=== PATIENT | male | born 1950 | race Caucasian/White ===

== ENCOUNTER 2022-08-19 15:13 | Inpatient (IN) ==
[2022-08-19 16:56] LABS: Basophils % 0.2 %; Eosinophils # 0.1 K/mcL (0.0-0.6); Eosinophils % 1.1 %; Hematocrit 35.1 % (37.5-50.1); Hemoglobin 11.4 g/dL (12.9-16.9); Immature Granulocytes % 1.2 % (0-4); Lymphocytes % 11.6 %; Mean Corpuscular HGB Conc 32.5 g/dL (31.6-35.5); Mean Corpuscular Hemoglobin 27.8 pg (28.0-33.3); Mean Corpuscular Volume 85.6 fL (83.0-100.0); Mean Platelet Volume 9.1 fL (9.4-12.4); Monocytes # 0.6 K/mcL (0.0-1.3); Monocytes % 7.3 %; Neutrophils # 6.6 K/mcL (1.6-8.9); Platelet Count 182 K/mcL (140-400); Red Cell Distribution Width 15.7 % (11.5-14.5); Segmented Neutrophils % 78.6 %; White Blood Count 8.4 K/mcL (4.3-11.1)
[2022-08-19] MEDS ORDERED: Iopamidol - 370 500 ML MLS IVP ONE (16:59)
[2022-08-19 17:17] LABS: BUN/Creatinine Ratio 26 (6-26); Blood Urea Nitrogen 59 mg/dL (8-23); Calcium 9.3 mg/dL (8.6-10.3); Carbon Dioxide 24 mEq/L (23-29); Chloride 105 mEq/L (98-107); Ethanol < 10 mg/dL (Less than 10); Glucose 131 mg/dL (70-105); Osmolality,Calculated 310 (280-300); Potassium 4.4 mEq/L (3.5-5.1); Sodium 141 mEq/L (136-145); Troponin I 0.03 ng/mL (< 0.04)
[2022-08-19] MEDS ORDERED: 0.9 % Sodium Chloride 1,000 ML IV ONE (17:37)
[2022-08-19] MEDS ORDERED: *HR* FentaNYL (PF) 100 MCG/2 ML VIAL IVP ONE (18:06)
[2022-08-19] MEDS ORDERED: *HR* Metoprolol 5 MG/5 ML VIAL IVP ONE (18:06)
[2022-08-19 18:21] LABS: VBG HCO3 24 mEq/L (21-27); VBG PCO2 51 mmHg (41-51); VBG PH 7.29 pH Units (7.32-7.42); VBG PO2 81 mmHg (25-50)
[2022-08-19 18:38] LABS: Magnesium 1.9 mg/dL (1.6-2.6)
[2022-08-19 18:51] LABS: Influenza A PCR Negative (Negative); Influenza B PCR Negative (Negative); Resp. Syncytial Virus PCR Negative (Negative)
[2022-08-19 18:52] LABS: Thyroid Stimulating Hormone 1.847 mcIU/mL (0.340-5.600)
[2022-08-19 19:25] LABS: SARS-CoV-2 by PCR (In House) Negative (Negative)
[2022-08-19] MEDS ORDERED: Haloperidol Lactate 5 MG/ML VIAL IVP ONE (20:22)
[2022-08-19] MEDS: *HR* LORazepam 2 MG/ML VIAL IVP ONE ×2 (20:34→20:35)
[2022-08-19 20:39] LABS: Amphetamine Screen,Urine Negative ng/mL (Cutoff=1000); Barbiturate Screen,Urine Negative ng/mL (Cutoff=200); Benzodiazepines Screen,Urine Negative ng/mL (Cutoff=200); Cannabinoid Screen,Urine Negative ng/mL (Cutoff = 50); Cocaine Screen,Urine Negative ng/mL (Cutoff= 300); Opiate Screen,Urine Negative ng/mL (Cutoff=300); Phencyclidine Screen,Urine Negative ng/mL (Cutoff=25)
[2022-08-19 21:35] LABS: Bilirubin,Urine Small (Negative); Blood,Urine Large (Negative); Clarity,Urine Turbid (Clear); Color,Urine Yellow (Yellow); Glucose,Urine (UA) 30 mg/dL (Normal); Hyaline Casts,Urine Many per lpf (None Seen); Ketones,Urine Trace mg/dL (Negative); Leukocyte Esterase,Urine Negative (Negative); Mucus,Urine Few per lpf (None-Few); Nitrite,Urine Negative (Negative); PH,Urine 6.5 pH Units (5.0-8.0); Protein,Urine >=600 mg/dL (Neg-Trace); Specific Gravity,Urine > 1.030 (1.010-1.025); Squamous Epithelial Cell,Urine Few per hpf (None-Few); Urobilinogen,Urine Normal (Normal)
[2022-08-19] MEDS ORDERED: Ziprasidone 10 MG, Closed System Device IM Kit 1 EACH in Water for inj. (sterile) 0.5 ML IM ONE (22:01)
[2022-08-19] MEDS ORDERED: Water for inj. (sterile) 10 ML ONE (22:03)
[2022-08-19] MEDS ORDERED: Ziprasidone 20 MG/VIAL VIAL IM ONE (22:03)
[2022-08-19] MEDS ORDERED: Naloxone 0.4 MG/ML INJ IVP PRN (23:14)
[2022-08-19] MEDS ORDERED: Ondansetron 4 MG/2 ML VIAL IVP PRN (23:14)
[2022-08-19 23:35] LABS: Adenovirus Not Detected (Not Detect); Bordetella Pertussis Not Detected (Not Detect); Chlamydophila pneumoniae Not Detected (Not Detect); Coronavirus 229E Not Detected (Not Detect); Coronavirus HKU1 Not Detected (Not Detect); Coronavirus NL63 Not Detected (Not Detect); Coronavirus OC43 Not Detected (Not Detect); Human Metapneumovirus Not Detected (Not Detect); Human Rhinovirus/Enterovirus Not Detected (Not Detect); Influenza A Subtype 2009 H1 Not Detected (Not Detect); Influenza B Not Detected (Not Detect); Mycoplasma pneumoniae Not Detected (Not Detect); Parainfluenza Virus 1 Not Detected (Not Detect); Parainfluenza Virus 2 Not Detected (Not Detect); Parainfluenza Virus 3 Not Detected (Not Detect); Parainfluenza Virus 4 Not Detected (Not Detect); Respiratory Syncytial Virus Not Detected (Not Detect); SARS-CoV-2 Not Detected (Not Detect)
[2022-08-19 23:45] LABS: ABG Base Excess -5 mEq/L (-2 to 3); ABG HCO3 21 mEq/L (21-27); ABG Oxygen Saturation 92 % (95-98); ABG PCO2 40 mmHg (35-45); ABG PH 7.33 pH Units (7.32-7.45); ABG PO2 68 mmHg (85-104); ABG TCO2 22 mEq/L (20-26)
[2022-08-20 01:11] LABS: Alanine Aminotransferase 7 Units/L (7-52); Albumin 3.9 g/dL (3.5-5.7); Albumin/Globulin Ratio 1.4 (1.1-2.2); Alkaline Phosphatase 70 Units/L (34-104); Aspartate Amino Transferase 13 Units/L (13-39); Bilirubin,Direct 0.2 mg/dL (0.0-0.2); Bilirubin,Indirect 0.7 mg/dL (0.0-1.0); Bilirubin,Total 0.9 mg/dL (0.3-1.0); Globulin 2.8 g/dL (2.4-3.5); Total Protein 6.7 g/dL (6.4-8.9)
[2022-08-20] MEDS ORDERED: *HR* Dextrose 50 % in Water (Syg) 50 ML SYRINGE IVP PRN (02:14)
[2022-08-20] MEDS ORDERED: Dextrose Gel 15 GM/37.5 ML TUBE PO PRN ×2 (02:14)
[2022-08-20] MEDS ORDERED: D5% in Water 1,000 ML IVC PRN (02:14)
[2022-08-20 02:55] LABS: Hematocrit 37.3 % (37.5-50.1); Hemoglobin 11.5 g/dL (12.9-16.9); Mean Corpuscular HGB Conc 30.8 g/dL (31.6-35.5); Mean Corpuscular Hemoglobin 26.7 pg (28.0-33.3); Mean Corpuscular Volume 86.7 fL (83.0-100.0); Mean Platelet Volume 9.8 fL (9.4-12.4); Platelet Count 186 K/mcL (140-400); Red Cell Distribution Width 15.9 % (11.5-14.5); White Blood Count 10.3 K/mcL (4.3-11.1)
[2022-08-20 03:11] LABS: Calcium 8.8 mg/dL (8.6-10.3)
[2022-08-20] MEDS ORDERED: *HR* LORazepam 2 MG/ML VIAL ONE ×2 (04:04→09:52)
[2022-08-20] MEDS ORDERED: *HR* LORazepam 2 MG/ML VIAL IVP ONE ×4 (04:10→10:15)
[2022-08-20] MEDS ORDERED: Morphine Sulfate 2 MG/ML SYRINGE IVP ONE (04:23)
[2022-08-20] MEDS ORDERED: Furosemide 40 MG/4 ML VIAL ONE (04:29)
[2022-08-20] MEDS ORDERED: Furosemide 40 MG/4 ML VIAL IVP ONE ×3 (04:35→14:29)
[2022-08-20] MEDS: *HR* Heparin 5,000 UNIT/ML VIAL SQ SCH ×3 (05:51→20:55)
[2022-08-20] MEDS: Insulin LISPRO 300 UNITS/3 ML VIAL SUBQ SCH ×4 (05:56→22:49)
[2022-08-20 06:57] LABS: ABG Base Excess -7 mEq/L (-2 to 3); ABG HCO3 18 mEq/L (21-27); ABG Oxygen Saturation 96 % (95-98); ABG PCO2 33 mmHg (35-45); ABG PH 7.34 pH Units (7.32-7.45); ABG PO2 89 mmHg (85-104); ABG TCO2 19 mEq/L (20-26); Blood Gas Pressure Support 8 cm H2O
[2022-08-20 09:44] LABS: Uric Acid 11.5 mg/dL (2.3-7.6)
[2022-08-20] MEDS: cefTRIAXone 1,000 MG in 0.9 % Sodium Chloride Mini Bag 100 ML IVPB SCH (10:25)
[2022-08-20] MEDS: Azithromycin 500 MG in 0.9 % Sodium Chloride 250 ML IVPB SCH (10:26)
[2022-08-20] MEDS: *HR* LORazepam 2 MG/ML VIAL IVP PRN (10:42)
[2022-08-20] MEDS ORDERED: Dexmedetomidine HCl 400 MCG/100 ML MLS IVC ONE (11:06)
[2022-08-20] MEDS: Dexmedetomidine HCl 400 MCG/100 ML MLS IVC SCH ×3 (11:14→23:56)
[2022-08-20 11:28] LABS: Hepatitis B Surface Antigen Nonreactive (Nonreactive)
[2022-08-20 11:56] LABS: Hepatitis C Virus Antibody Nonreactive (Nonreactive)
[2022-08-20 11:57] LABS: Hepatitis B Core IgM Nonreactive (Nonreactive)
[2022-08-20 11:58] LABS: Hepatitis A Antibody IgM Nonreactive (Nonreactive)
[2022-08-20] MEDS: Albumin 25% 25gram/100mL 25 GM/100 ML IV.SOLN IVPB SCH ×2 (14:19→20:53)
[2022-08-20] MEDS ORDERED: Furosemide 240 MG in 0.9 % Sodium Chloride 96 ML IVC SCH (14:30)
[2022-08-20] MEDS ORDERED: Ipratropium/Albuterol Neb 3 ML IH PRN (22:07)
[2022-08-20 22:19] LABS: ABG Base Excess -2 mEq/L (-2 to 3); ABG HCO3 23 mEq/L (21-27); ABG Oxygen Saturation 93 % (95-98); ABG PCO2 38 mmHg (35-45); ABG PH 7.38 pH Units (7.32-7.45); ABG PO2 68 mmHg (85-104); ABG TCO2 24 mEq/L (20-26)
[2022-08-20] MEDS ORDERED: Haloperidol Lactate 5 MG/ML VIAL IVP ONE (22:21)
[2022-08-21] MEDS: *HR* LORazepam 2 MG/ML VIAL IVP PRN ×2 (01:00→06:55)
[2022-08-21 01:42] LABS: Basophils % 0.1 %; Hematocrit 35.4 % (37.5-50.1); Hemoglobin 11.3 g/dL (12.9-16.9); Immature Granulocytes % 0.3 % (0-4); Lymphocytes # 1.1 K/mcL (0.6-4.6); Lymphocytes % 7.5 %; Mean Corpuscular HGB Conc 31.9 g/dL (31.6-35.5); Mean Corpuscular Hemoglobin 26.9 pg (28.0-33.3); Mean Corpuscular Volume 84.3 fL (83.0-100.0); Mean Platelet Volume 10.3 fL (9.4-12.4); Monocytes # 1.1 K/mcL (0.0-1.3); Monocytes % 7.3 %; Neutrophils # 12.5 K/mcL (1.6-8.9); Platelet Count 155 K/mcL (140-400); Red Cell Distribution Width 16.6 % (11.5-14.5); Segmented Neutrophils % 84.8 %; White Blood Count 14.7 K/mcL (4.3-11.1)
[2022-08-21 02:02] LABS: Albumin 3.3 g/dL (3.5-5.7); Albumin/Globulin Ratio 1.1 (1.1-2.2); Bilirubin,Total 0.5 mg/dL (0.3-1.0); Calcium 8.7 mg/dL (8.6-10.3); Globulin 2.9 g/dL (2.4-3.5); Magnesium 1.9 mg/dL (1.6-2.6); Phosphorous 4.5 mg/dL (2.7-4.5); Potassium 4.8 mEq/L (3.5-5.1); Total Protein 6.2 g/dL (6.4-8.9)
[2022-08-21] MEDS: Dexmedetomidine HCl 400 MCG/100 ML MLS IVC SCH ×4 (05:02→20:44)
[2022-08-21] MEDS: Albumin 25% 25gram/100mL 25 GM/100 ML IV.SOLN IVPB SCH ×3 (05:03→20:42)
[2022-08-21] MEDS: *HR* Heparin 5,000 UNIT/ML VIAL SQ SCH ×3 (05:03→20:46)
[2022-08-21] MEDS: Insulin LISPRO 300 UNITS/3 ML VIAL SUBQ SCH ×4 (05:05→23:11)
[2022-08-21 05:29] LABS: Creatinine,Urine 278 mg/dL; Microalbumin,Urine > 1350 mg/L; Protein/Creatinine Ratio,Urine 1.81 mg/mg (0.00-0.20)
[2022-08-21] MEDS: Azithromycin 500 MG in 0.9 % Sodium Chloride 250 ML IVPB SCH (06:39)
[2022-08-21] MEDS ORDERED: *HR* LORazepam 2 MG/ML VIAL IVP ONE ×2 (07:29→13:39)
[2022-08-21 08:17] LABS: VBG HCO3 19 mEq/L (21-27); VBG PCO2 52 mmHg (41-51); VBG PH 7.17 pH Units (7.32-7.42); VBG PO2 32 mmHg (25-50)
[2022-08-21] MEDS ORDERED: 0.9 % Sodium Chloride 500 ML ONE (08:37)
[2022-08-21] MEDS: Midazolam HCl 50 MG/50 ML IV.SOLN IVC SCH ×3 (08:59→16:38)
[2022-08-21 09:03] LABS: ABG Base Excess -1 mEq/L (-2 to 3); ABG HCO3 24 mEq/L (21-27); ABG Oxygen Saturation 65 % (95-98); ABG PCO2 38 mmHg (35-45); ABG PO2 33 mmHg (85-104); ABG TCO2 25 mEq/L (20-26); Blood Gas Modality ASSIST CONTROL; Blood Gas VT 480 cc
[2022-08-21] MEDS: cefTRIAXone 1,000 MG in 0.9 % Sodium Chloride Mini Bag 100 ML IVPB SCH (09:12)
[2022-08-21] MEDS: Carbidopa/Levodopa 25/100 TABLET PO SCH ×2 (09:12→20:46)
[2022-08-21] MEDS: Norepinephrine 4 MG/254 ML IV.SOLN IVC SCH ×2 (10:57→11:42)
[2022-08-21] MEDS ORDERED: *HR* Heparin 5,000 UNIT/ML VIAL IVP PRN (11:52)
[2022-08-21] MEDS ORDERED: 0.9 % Sodium Chloride 1,000 ML PRIME ONE ×2 (11:52)
[2022-08-21] MEDS ORDERED: *HR* Alteplase (Cathflo) 2 MG VIAL IVP PRN (11:52)
[2022-08-21] MEDS ORDERED: *HR* FentaNYL (PF) 100 MCG/2 ML VIAL ONE (11:54)
[2022-08-21] MEDS ORDERED: *HR* FentaNYL (PF) 100 MCG/2 ML VIAL IVP ONE (11:58)
[2022-08-21] MEDS ORDERED: FentaNYL (PF) 1,000 MCG/100 ML IV.SOLN IVC SCH (12:00)
[2022-08-21] MEDS: FentaNYL (PF) 1,000 MCG/100 ML IV.SOLN IVC SCH ×2 (12:14→16:33)
[2022-08-21 12:15] LABS: INR 1.3; Prothrombin Time 14.4 Seconds (9.4-12.1)
[2022-08-21] MEDS: PrismaSATE BGK 4/2.5 5,000 ML CRRT SCH ×4 (12:44→23:13)
[2022-08-21 13:02] LABS: ABG Base Excess 0 mEq/L (-2 to 3); ABG HCO3 25 mEq/L (21-27); ABG Oxygen Saturation 81 % (95-98); ABG PCO2 40 mmHg (35-45); ABG PH 7.41 pH Units (7.32-7.45); ABG PO2 45 mmHg (85-104); ABG TCO2 26 mEq/L (20-26); Blood Gas Modality ASSIST CONTROL; Blood Gas VT 480 cc
[2022-08-21] MEDS ORDERED: *HR* Midazolam HCl 2 MG/2 ML VIAL IVP ONE (13:34)
[2022-08-21] MEDS ORDERED: *HR* Etomidate 20 MG/10 ML AMPUL IVP ONE (13:34)
[2022-08-21] MEDS ORDERED: *HR* Propofol 200 MG/20 ML VIAL IVP ONE ×2 (13:34→13:39)
[2022-08-21] MEDS ORDERED: *HR* Midazolam HCl 5 MG/5 ML VIAL IVP ONE ×2 (13:34→13:39)
[2022-08-21] MEDS: Cisatracurium 200 MG in 0.9 % Sodium Chloride 80 ML IVC SCH ×3 (13:47→17:00)
[2022-08-21] MEDS ORDERED: Calcium Gluconate 1gm/50mL 1 GM/50 ML BAG IVPB PRN ×2 (14:17)
[2022-08-21 15:23] LABS: VBG Ionized Calcium 1.06 mmol/L (1.15-1.35)
[2022-08-21] MEDS: Piperacillin/Tazobactam 3.375 GM in 0.9 % Sodium Chloride Mini Bag 100 ML IVPB SCH ×2 (15:36→23:05)
[2022-08-21] MEDS: Calcium Chloride 4,000 MG in 0.9 % Sodium Chloride 1,000 ML CRRT SCH (16:18)
[2022-08-21] MEDS ORDERED: Cisatracurium 200 MG in 0.9 % Sodium Chloride 80 ML IVC SCH (17:00)
[2022-08-21 17:59] LABS: ABG Base Excess 0 mEq/L (-2 to 3); ABG HCO3 25 mEq/L (21-27); ABG Oxygen Saturation 86 % (95-98); ABG PCO2 45 mmHg (35-45); ABG PH 7.36 pH Units (7.32-7.45); ABG PO2 54 mmHg (85-104); ABG TCO2 27 mEq/L (20-26); Blood Gas Modality ASSIST CONTROL; Blood Gas VT 480 cc
[2022-08-21 19:08] LABS: VBG Ionized Calcium 1.09 mmol/L (1.15-1.35)
[2022-08-21 19:57] LABS: ABG Base Excess 0 mEq/L (-2 to 3); ABG HCO3 26 mEq/L (21-27); ABG Oxygen Saturation 100 % (95-98); ABG PCO2 45 mmHg (35-45); ABG PH 7.36 pH Units (7.32-7.45); ABG PO2 318 mmHg (85-104); ABG TCO2 27 mEq/L (20-26); Blood Gas Modality ASSIST CONTROL; Blood Gas VT 480 cc
[2022-08-21 21:16] LABS: ABG Ionized Calcium 1.09 mmol/L (1.15-1.35)
[2022-08-21 23:10] LABS: ABG Ionized Calcium 1.13 mmol/L (1.15-1.35)
[2022-08-22 01:07] LABS: ABG Ionized Calcium 1.14 mmol/L (1.15-1.35)
[2022-08-22] MEDS: Midazolam HCl 50 MG/50 ML IV.SOLN IVC SCH ×3 (01:25→18:19)
[2022-08-22 03:15] LABS: Basophils % 0.1 %; Hematocrit 25.9 % (37.5-50.1); Immature Granulocytes % 0.7 % (0-4); Lymphocytes # 0.8 K/mcL (0.6-4.6); Lymphocytes % 9.1 %; Mean Corpuscular HGB Conc 32.4 g/dL (31.6-35.5); Mean Corpuscular Hemoglobin 27.3 pg (28.0-33.3); Mean Corpuscular Volume 84.1 fL (83.0-100.0); Monocytes # 0.8 K/mcL (0.0-1.3); Monocytes % 9.2 %; Neutrophils # 6.9 K/mcL (1.6-8.9); Platelet Count 122 K/mcL (140-400); Red Blood Count 3.08 M/mcL (4.19-5.50); Red Cell Distribution Width 17.3 % (11.5-14.5); Segmented Neutrophils % 80.9 %; White Blood Count 8.6 K/mcL (4.3-11.1)
[2022-08-22 03:15] LABS: ABG Ionized Calcium 1.16 mmol/L (1.15-1.35)
[2022-08-22 03:34] LABS: Albumin 3.3 g/dL (3.5-5.7); Albumin/Globulin Ratio 1.5 (1.1-2.2); Bilirubin,Total 0.5 mg/dL (0.3-1.0); Calcium 8.8 mg/dL (8.6-10.3); Globulin 2.2 g/dL (2.4-3.5); Potassium 4.7 mEq/L (3.5-5.1); Total Protein 5.5 g/dL (6.4-8.9)
[2022-08-22 03:55] LABS: ABG Base Excess 4 mEq/L (-2 to 3); ABG HCO3 29 mEq/L (21-27); ABG Oxygen Saturation 100 % (95-98); ABG PCO2 48 mmHg (35-45); ABG PH 7.39 pH Units (7.32-7.45); ABG PO2 176 mmHg (85-104); ABG TCO2 31 mEq/L (20-26); Blood Gas VT 480 cc
[2022-08-22 04:12] LABS: Hemoglobin 8.4 g/dL (12.9-16.9)
[2022-08-22] MEDS: Dexmedetomidine HCl 400 MCG/100 ML MLS IVC SCH ×4 (04:16→21:14)
[2022-08-22] MEDS: Albumin 25% 25gram/100mL 25 GM/100 ML IV.SOLN IVPB SCH ×3 (05:09→20:28)
[2022-08-22] MEDS: *HR* Heparin 5,000 UNIT/ML VIAL SQ SCH ×3 (05:10→21:36)
[2022-08-22] MEDS: Insulin LISPRO 300 UNITS/3 ML VIAL SUBQ SCH ×4 (05:14→22:51)
[2022-08-22 05:15] LABS: ABG Ionized Calcium 1.18 mmol/L (1.15-1.35)
[2022-08-22] MEDS: PrismaSATE BGK 4/2.5 5,000 ML CRRT SCH ×3 (05:46→12:15)
[2022-08-22] MEDS: Cisatracurium 200 MG in 0.9 % Sodium Chloride 80 ML IVC SCH (05:47)
[2022-08-22 07:07] LABS: ABG Ionized Calcium 1.18 mmol/L (1.15-1.35)
[2022-08-22] MEDS: SODIUM CITRATE 500 ML CRRT SCH ×2 (07:07→12:30)
[2022-08-22] MEDS: Azithromycin 500 MG in 0.9 % Sodium Chloride 250 ML IVPB SCH (07:19)
[2022-08-22] MEDS: Piperacillin/Tazobactam 3.375 GM in 0.9 % Sodium Chloride Mini Bag 100 ML IVPB SCH ×3 (07:20→22:57)
[2022-08-22] MEDS: Carbidopa/Levodopa 25/100 TABLET PO SCH ×2 (07:21→20:30)
[2022-08-22] MEDS: FentaNYL (PF) 1,000 MCG/100 ML IV.SOLN IVC SCH (07:29)
[2022-08-22 08:16] LABS: Hematocrit 25.5 % (37.5-50.1); Hemoglobin 8.2 g/dL (12.9-16.9); Mean Corpuscular HGB Conc 32.2 g/dL (31.6-35.5); Mean Corpuscular Hemoglobin 27.1 pg (28.0-33.3); Mean Corpuscular Volume 84.2 fL (83.0-100.0); Mean Platelet Volume 10.9 fL (9.4-12.4); Platelet Count 129 K/mcL (140-400); Red Blood Count 3.03 M/mcL (4.19-5.50); Red Cell Distribution Width 17.5 % (11.5-14.5); White Blood Count 8.6 K/mcL (4.3-11.1)
[2022-08-22] MEDS ORDERED: Lidocaine -MPF 1% 5 ML AMPUL INFILT ONE (08:42)
[2022-08-22 09:11] LABS: ABG Ionized Calcium 1.09 mmol/L (1.15-1.35)
[2022-08-22] MEDS ORDERED: Artificial Tears SOLN 15 ML BOTTLE BOTH EYES PRN (09:21)
[2022-08-22] MEDS: Chlorhexidine Rinse 15 ML MOUTHWASH MM SCH ×2 (09:59→20:28)
[2022-08-22] MEDS: Norepinephrine 4 MG/254 ML IV.SOLN IVC SCH ×2 (10:37→18:01)
[2022-08-22] MEDS: Artificial Tears SOLN 15 ML BOTTLE BOTH EYES SCH ×4 (10:38→22:51)
[2022-08-22] MEDS: Pantoprazole 40 MG VIAL IVP SCH (11:06)
[2022-08-22] MEDS: Calcium Chloride 4,000 MG in 0.9 % Sodium Chloride 1,000 ML CRRT SCH ×3 (12:33→14:16)
[2022-08-22] MEDS ORDERED: 0.9 % Sodium Chloride 1,000 ML ONE ×2 (13:28→14:10)
[2022-08-22 13:29] LABS: ABG Ionized Calcium 1.16 mmol/L (1.15-1.35)
[2022-08-22 17:09] LABS: ABG Ionized Calcium 1.14 mmol/L (1.15-1.35)
[2022-08-22 19:15] LABS: ABG Ionized Calcium 1.18 mmol/L (1.15-1.35)
[2022-08-23] MEDS: SODIUM CITRATE 500 ML CRRT SCH ×12 (00:41→23:41)
[2022-08-23] MEDS: PrismaSATE BGK 4/2.5 5,000 ML CRRT SCH ×9 (00:52→21:20)
[2022-08-23] MEDS: FentaNYL (PF) 1,000 MCG/100 ML IV.SOLN IVC SCH (01:17)
[2022-08-23 01:19] LABS: ABG Ionized Calcium 1.11 mmol/L (1.15-1.35)
[2022-08-23] MEDS: Dexmedetomidine HCl 400 MCG/100 ML MLS IVC SCH ×5 (01:23→21:51)
[2022-08-23 03:12] LABS: Basophils % 0.1 %; Eosinophils % 0.1 %; Hematocrit 27.4 % (37.5-50.1); Hemoglobin 8.5 g/dL (12.9-16.9); Lymphocytes # 0.5 K/mcL (0.6-4.6); Lymphocytes % 5.6 %; Mean Corpuscular Hemoglobin 26.7 pg (28.0-33.3); Mean Corpuscular Volume 86.2 fL (83.0-100.0); Mean Platelet Volume 11.3 fL (9.4-12.4); Monocytes # 0.7 K/mcL (0.0-1.3); Monocytes % 7.6 %; Neutrophils # 7.9 K/mcL (1.6-8.9); Platelet Count 150 K/mcL (140-400); Red Blood Count 3.18 M/mcL (4.19-5.50); Red Cell Distribution Width 17.6 % (11.5-14.5); Segmented Neutrophils % 85.6 %; White Blood Count 9.2 K/mcL (4.3-11.1)
[2022-08-23] MEDS: Artificial Tears SOLN 15 ML BOTTLE BOTH EYES SCH ×6 (03:28→23:30)
[2022-08-23 03:46] LABS: Alanine Aminotransferase < 3 Units/L (7-52); Albumin 4.1 g/dL (3.5-5.7); Albumin/Globulin Ratio 1.6 (1.1-2.2); Alkaline Phosphatase 42 Units/L (34-104); Aspartate Amino Transferase 12 Units/L (13-39); BUN/Creatinine Ratio 15 (6-26); Bilirubin,Total 0.7 mg/dL (0.3-1.0); Blood Urea Nitrogen 37 mg/dL (8-23); Calcium 9.3 mg/dL (8.6-10.3); Carbon Dioxide 29 mEq/L (23-29); Chloride 104 mEq/L (98-107); Globulin 2.5 g/dL (2.4-3.5); Glucose 180 mg/dL (70-105); Osmolality,Calculated 309 (280-300); Potassium 4.2 mEq/L (3.5-5.1); Sodium 143 mEq/L (136-145); Total Protein 6.6 g/dL (6.4-8.9)
[2022-08-23 04:14] LABS: VBG Ionized Calcium 1.08 mmol/L (1.15-1.35)
[2022-08-23 04:23] LABS: ABG Base Excess 8 mEq/L (-2 to 3); ABG HCO3 34 mEq/L (21-27); ABG Oxygen Saturation 94 % (95-98); ABG PCO2 57 mmHg (35-45); ABG PH 7.38 pH Units (7.32-7.45); ABG PO2 75 mmHg (85-104); ABG TCO2 36 mEq/L (20-26); Blood Gas VT 480 cc
[2022-08-23] MEDS: Albumin 25% 25gram/100mL 25 GM/100 ML IV.SOLN IVPB SCH (04:25)
[2022-08-23 04:36] LABS: ABG Ionized Calcium 1.09 mmol/L (1.15-1.35)
[2022-08-23 05:17] LABS: VBG Ionized Calcium 1.05 mmol/L (1.15-1.35)
[2022-08-23] MEDS: *HR* Heparin 5,000 UNIT/ML VIAL SQ SCH ×3 (05:18→19:31)
[2022-08-23] MEDS: Insulin LISPRO 300 UNITS/3 ML VIAL SUBQ SCH ×4 (05:26→23:32)
[2022-08-23] MEDS: Azithromycin 500 MG in 0.9 % Sodium Chloride 250 ML IVPB SCH (05:35)
[2022-08-23 07:09] LABS: VBG Ionized Calcium 1.09 mmol/L (1.15-1.35)
[2022-08-23] MEDS: Pantoprazole 40 MG VIAL IVP SCH (07:18)
[2022-08-23] MEDS: Chlorhexidine Rinse 15 ML MOUTHWASH MM SCH ×2 (07:18→19:31)
[2022-08-23] MEDS: Piperacillin/Tazobactam 3.375 GM in 0.9 % Sodium Chloride Mini Bag 100 ML IVPB SCH ×3 (07:18→23:38)
[2022-08-23] MEDS: Calcium Chloride 4,000 MG in 0.9 % Sodium Chloride 1,000 ML CRRT SCH ×2 (07:20→20:36)
[2022-08-23] MEDS: Carbidopa/Levodopa 25/100 TABLET PO SCH ×2 (07:20→19:31)
[2022-08-23] MEDS: Midazolam HCl 50 MG/50 ML IV.SOLN IVC SCH (07:21)
[2022-08-23] MEDS ORDERED: 0.9 % Sodium Chloride 1,000 ML ONE (08:56)
[2022-08-23 09:10] LABS: ABG Ionized Calcium 1.09 mmol/L (1.15-1.35)
[2022-08-23] MEDS: Norepinephrine 4 MG/254 ML IV.SOLN IVC SCH (10:28)
[2022-08-23 11:23] LABS: ABG Ionized Calcium 1.14 mmol/L (1.15-1.35)
[2022-08-23 11:44] LABS: % Iron Saturation 13 % (20-55); Iron 25 mcg/dL (65-175); Transferrin 136 mg/dL (203-362)
[2022-08-23 11:55] LABS: Ferritin 285 ng/mL (20-250)
[2022-08-23 13:13] LABS: VBG Ionized Calcium 1.17 mmol/L (1.15-1.35)
[2022-08-23 15:14] LABS: VBG Ionized Calcium 1.18 mmol/L (1.15-1.35)
[2022-08-23 17:17] LABS: ABG Ionized Calcium 1.14 mmol/L (1.15-1.35)
[2022-08-23 23:19] LABS: ABG Ionized Calcium 1.06 mmol/L (1.15-1.35)
[2022-08-24] MEDS: Dexmedetomidine HCl 400 MCG/100 ML MLS IVC SCH ×6 (01:32→21:32)
[2022-08-24] MEDS: SODIUM CITRATE 500 ML CRRT SCH ×5 (01:36→13:15)
[2022-08-24 02:24] LABS: ABG Ionized Calcium 1.05 mmol/L (1.15-1.35)
[2022-08-24] MEDS: PrismaSATE BGK 4/2.5 5,000 ML CRRT SCH ×4 (02:27→12:50)
[2022-08-24] MEDS: Artificial Tears SOLN 15 ML BOTTLE BOTH EYES SCH ×6 (03:16→22:39)
[2022-08-24 04:09] LABS: Hematocrit 28.6 % (37.5-50.1); Mean Corpuscular HGB Conc 31.5 g/dL (31.6-35.5); Mean Corpuscular Hemoglobin 27.3 pg (28.0-33.3); Mean Corpuscular Volume 86.7 fL (83.0-100.0); Mean Platelet Volume 10.9 fL (9.4-12.4); Platelet Count 159 K/mcL (140-400); Red Cell Distribution Width 17.7 % (11.5-14.5); White Blood Count 9.2 K/mcL (4.3-11.1)
[2022-08-24 04:10] LABS: ABG Base Excess 18 mEq/L (-2 to 3); ABG HCO3 43 mEq/L (21-27); ABG Oxygen Saturation 88 % (95-98); ABG PCO2 56 mmHg (35-45); ABG PO2 52 mmHg (85-104); ABG TCO2 45 mEq/L (20-26); Blood Gas VT 480 cc
[2022-08-24 04:11] LABS: ABG Ionized Calcium 1.07 mmol/L (1.15-1.35)
[2022-08-24 04:29] LABS: Albumin 4.5 g/dL (3.5-5.7); Albumin/Globulin Ratio 1.7 (1.1-2.2); Bilirubin,Total 0.8 mg/dL (0.3-1.0); Calcium 10.7 mg/dL (8.6-10.3); Globulin 2.7 g/dL (2.4-3.5); Total Protein 7.2 g/dL (6.4-8.9)
[2022-08-24] MEDS: *HR* Heparin 5,000 UNIT/ML VIAL SQ SCH ×3 (05:14→19:39)
[2022-08-24] MEDS: Azithromycin 500 MG in 0.9 % Sodium Chloride 250 ML IVPB SCH (05:15)
[2022-08-24] MEDS: Insulin LISPRO 300 UNITS/3 ML VIAL SUBQ SCH ×3 (05:17→17:52)
[2022-08-24 06:21] LABS: ABG Ionized Calcium 1.08 mmol/L (1.15-1.35)
[2022-08-24 08:08] LABS: VBG Ionized Calcium 1.16 mmol/L (1.15-1.35)
[2022-08-24] MEDS: Norepinephrine 4 MG/254 ML IV.SOLN IVC SCH ×3 (08:09→15:59)
[2022-08-24] MEDS: Pantoprazole 40 MG VIAL IVP SCH (08:12)
[2022-08-24] MEDS ORDERED: Piperacillin/Tazobactam 3.375 GM VIAL ONE (08:16)
[2022-08-24] MEDS: Calcium Chloride 4,000 MG in 0.9 % Sodium Chloride 1,000 ML CRRT SCH (08:18)
[2022-08-24] MEDS: Carbidopa/Levodopa 25/100 TABLET PO SCH ×2 (08:20→19:39)
[2022-08-24] MEDS: Chlorhexidine Rinse 15 ML MOUTHWASH MM SCH ×2 (08:20→19:39)
[2022-08-24] MEDS: Piperacillin/Tazobactam 3.375 GM in 0.9 % Sodium Chloride Mini Bag 100 ML IVPB SCH ×3 (08:20→22:40)
[2022-08-24 10:31] LABS: ABG Ionized Calcium 1.19 mmol/L (1.15-1.35)
[2022-08-24 10:34] LABS: ABG Base Excess 14 mEq/L (-2 to 3); ABG HCO3 41 mEq/L (21-27); ABG Oxygen Saturation 90 % (95-98); ABG PCO2 63 mmHg (35-45); ABG PH 7.42 pH Units (7.32-7.45); ABG PO2 59 mmHg (85-104); ABG TCO2 42 mEq/L (20-26); Blood Gas Modality ASSIST CONTROL; Blood Gas VT 450 cc
[2022-08-24 12:12] LABS: ABG Ionized Calcium 1.17 mmol/L (1.15-1.35)
[2022-08-24] MEDS: Cisatracurium 200 MG in 0.9 % Sodium Chloride 80 ML IVC SCH (12:22)
[2022-08-24] MEDS ORDERED: *HR* Metoprolol 5 MG/5 ML VIAL IVP ONE ×2 (12:31→12:52)
[2022-08-24 14:18] LABS: ABG Ionized Calcium 1.09 mmol/L (1.15-1.35)
[2022-08-24 14:53] LABS: ABG Ionized Calcium 1.16 mmol/L (1.15-1.35)
[2022-08-24] MEDS: FentaNYL (PF) 1,000 MCG/100 ML IV.SOLN IVC SCH ×2 (14:59→19:15)
[2022-08-24] MEDS ORDERED: Ringers Solution, Lactated 1,000 ML ONE (15:38)
[2022-08-24] MEDS ORDERED: 0.9 % Sodium Chloride 1,000 ML ONE (15:38)
[2022-08-24] MEDS ORDERED: Amiodarone Premix 360 MG/200 ML BAG IVC ONE (16:25)
[2022-08-24] MEDS ORDERED: Amiodarone Premix 150 MG/100 ML BAG IVPB ONE (16:25)
[2022-08-24 16:32] LABS: ABG Base Excess 11 mEq/L (-2 to 3); ABG HCO3 38 mEq/L (21-27); ABG Oxygen Saturation 98 % (95-98); ABG PCO2 64 mmHg (35-45); ABG PH 7.38 pH Units (7.32-7.45); ABG PO2 119 mmHg (85-104); ABG TCO2 40 mEq/L (20-26); Blood Gas Modality ASSIST CONTROL; Blood Gas VT 450 cc
[2022-08-24] MEDS: Phenylephrine 20 MG in 0.9 % Sodium Chloride 250 ML IVC SCH (17:12)
[2022-08-24] MEDS: Valproic Acid INJ 500 MG in 0.9 % Sodium Chloride 100 ML IVPB SCH ×2 (17:39→22:39)
[2022-08-24] MEDS: Amiodarone Premix 360 MG/200 ML BAG IVC SCH (22:27)
[2022-08-25] MEDS: Insulin LISPRO 300 UNITS/3 ML VIAL SUBQ SCH ×4 (00:04→17:45)
[2022-08-25] MEDS: FentaNYL (PF) 1,000 MCG/100 ML IV.SOLN IVC SCH ×2 (00:09→14:58)
[2022-08-25] MEDS: Cisatracurium 200 MG in 0.9 % Sodium Chloride 80 ML IVC SCH (00:31)
[2022-08-25] MEDS: Dexmedetomidine HCl 400 MCG/100 ML MLS IVC SCH (00:50)
[2022-08-25] MEDS: Artificial Tears SOLN 15 ML BOTTLE BOTH EYES SCH ×5 (03:27→20:38)
[2022-08-25 03:44] LABS: Basophils # 0.1 K/mcL (0.0-0.2); Basophils % 0.9 %; Eosinophils # 0.2 K/mcL (0.0-0.6); Eosinophils % 1.3 %; Hematocrit 29.4 % (37.5-50.1); Hemoglobin 8.9 g/dL (12.9-16.9); Immature Granulocytes % 4.2 % (0-4); Lymphocytes # 1.6 K/mcL (0.6-4.6); Lymphocytes % 13.8 %; Mean Corpuscular HGB Conc 30.3 g/dL (31.6-35.5); Mean Corpuscular Volume 89.1 fL (83.0-100.0); Mean Platelet Volume 11.6 fL (9.4-12.4); Monocytes # 1.1 K/mcL (0.0-1.3); Monocytes % 9.8 %; Neutrophils # 7.9 K/mcL (1.6-8.9); Nucleated Red Blood Cells 2.1 /100 WBC (0); Platelet Count 233 K/mcL (140-400); White Blood Count 11.3 K/mcL (4.3-11.1)
[2022-08-25] MEDS: Phenylephrine 20 MG in 0.9 % Sodium Chloride 250 ML IVC SCH ×3 (03:49→12:54)
[2022-08-25 04:04] LABS: Alanine Aminotransferase < 3 Units/L (7-52); Albumin 4.1 g/dL (3.5-5.7); Albumin/Globulin Ratio 1.5 (1.1-2.2); Alkaline Phosphatase 55 Units/L (34-104); Aspartate Amino Transferase 18 Units/L (13-39); BUN/Creatinine Ratio 13 (6-26); Bilirubin,Total 0.6 mg/dL (0.3-1.0); Blood Urea Nitrogen 46 mg/dL (8-23); Calcium 10.2 mg/dL (8.6-10.3); Carbon Dioxide 38 mEq/L (23-29); Chloride 100 mEq/L (98-107); Globulin 2.7 g/dL (2.4-3.5); Glucose 168 mg/dL (70-105); Osmolality,Calculated 324 (280-300); Potassium 4.5 mEq/L (3.5-5.1); Sodium 149 mEq/L (136-145); Total Protein 6.8 g/dL (6.4-8.9)
[2022-08-25 04:16] LABS: ABG Base Excess 10 mEq/L (-2 to 3); ABG HCO3 38 mEq/L (21-27); ABG Oxygen Saturation 99 % (95-98); ABG PCO2 60 mmHg (35-45); ABG PH 7.41 pH Units (7.32-7.45); ABG PO2 142 mmHg (85-104); ABG TCO2 39 mEq/L (20-26); Blood Gas VT 450 cc
[2022-08-25] MEDS: *HR* Heparin 5,000 UNIT/ML VIAL SQ SCH ×3 (07:37→20:39)
[2022-08-25] MEDS: Azithromycin 500 MG in 0.9 % Sodium Chloride 250 ML IVPB SCH (07:38)
[2022-08-25] MEDS: Midazolam HCl 50 MG/50 ML IV.SOLN IVC SCH (08:11)
[2022-08-25] MEDS: Chlorhexidine Rinse 15 ML MOUTHWASH MM SCH ×2 (08:16→20:39)
[2022-08-25] MEDS: Pantoprazole 40 MG VIAL IVP SCH (08:16)
[2022-08-25] MEDS: Piperacillin/Tazobactam 3.375 GM in 0.9 % Sodium Chloride Mini Bag 100 ML IVPB SCH (08:17)
[2022-08-25] MEDS: Carbidopa/Levodopa 25/100 TABLET PO SCH (08:17)
[2022-08-25] MEDS: Valproic Acid INJ 500 MG in 0.9 % Sodium Chloride 100 ML IVPB SCH (08:18)
[2022-08-25] MEDS ORDERED: Docusate Oral Soln 100 MG/10 ML UDC GTUBE SCH (11:15)
[2022-08-25] MEDS: Amiodarone Premix 360 MG/200 ML BAG IVC SCH (11:30)
[2022-08-25] MEDS ORDERED: Norepinephrine 4 MG/254 ML IV.SOLN IVC SCH (12:45)
[2022-08-25] MEDS: Phenylephrine 100 MG in 0.9 % Sodium Chloride 250 ML IVC SCH ×2 (15:14→17:23)
[2022-08-25 16:56] LABS: Calcium 9.6 mg/dL (8.6-10.3); Potassium 4.8 mEq/L (3.5-5.1)
[2022-08-25] MEDS ORDERED: Valproic Acid Oral Soln 250 MG/5 ML UDC GTUBE SCH (18:00)
[2022-08-25] MEDS ORDERED: Piperacillin/Tazobactam 3.375 GM in 0.9 % Sodium Chloride Mini Bag 100 ML IVPB SCH (20:00)
[2022-08-25 20:05] VITALS: TEMP 100.1
[2022-08-25 21:04] VITALS: BP 133/62; PULSE 99; O2SAT 93
== END 2022-08-25 23:50 | disposition expired | DRG 91 ==
LOC: 2NENU 15:13 → EMEROOARM 15:13 → SUATTDRO 23:11 → 2NENU 23:54 → 2NNU 08-20 05:05 → ICNU 08-21 07:58
PROVIDERS: ADMIT Internal Medicine; ATTEND Internal Medicine